=== PATIENT | male | born 1980 | race African-American/Black ===

== ENCOUNTER → 2016-12-21 | Outpatient (CLI) | payer BC, OTHER | LOC: HYPER 07:25 | DX: L89.224 Pressure ulcer of left hip, stage 4 (principal); G82.20 Paraplegia, unspecified; E44.0 Moderate protein-calorie malnutrition; F32.9 Major depressive disorder, single episode, unspecified; M86.68 Other chronic osteomyelitis, other site; Z72.89 Other problems related to lifestyle; Z86.14 Personal history of Methicillin resistant Staphylococcus aureus infection ==

== ENCOUNTER → 2017-01-11 | Outpatient (CLI) | payer BC, OTHER | LOC: HYPER 07:13 | DX: T81.89XA Other complications of procedures, not elsewhere classified, initial encounter (principal); L89.224 Pressure ulcer of left hip, stage 4; L89.892 Pressure ulcer of other site, stage 2; G82.20 Paraplegia, unspecified; M86.9 Osteomyelitis, unspecified; F32.9 Major depressive disorder, single episode, unspecified; Z72.89 Other problems related to lifestyle; Z86.14 Personal history of Methicillin resistant Staphylococcus aureus infection; Y83.8 Other surgical procedures as the cause of abnormal reaction of the patient, or of later complication, without mention of misadventure at the time of the procedure; Y92.89 Other specified places as the place of occurrence of the external cause ==

== ENCOUNTER → 2018-04-03 | Outpatient (CLI) | payer BC, OTHER | LOC: HYPER 06:55 | DX: L89.224 Pressure ulcer of left hip, stage 4 (principal); G82.20 Paraplegia, unspecified; M86.8X8 Other osteomyelitis, other site; F32.9 Major depressive disorder, single episode, unspecified; F41.9 Anxiety disorder, unspecified; Z99.2 Dependence on renal dialysis ==

== ENCOUNTER → 2019-10-09 | Outpatient (CLI) | payer BC, OTHER | LOC: HYPER 09:50 | PROVIDERS: ATTEND Emergency Medicine | DX: L89.224 Pressure ulcer of left hip, stage 4 (principal); M86.8X8 Other osteomyelitis, other site; G82.21 Paraplegia, complete; F32.9 Major depressive disorder, single episode, unspecified; F41.9 Anxiety disorder, unspecified; Z99.2 Dependence on renal dialysis; Z93.2 Ileostomy status ==

== ENCOUNTER → 2019-10-25 | Outpatient (CLI) | payer BC, OTHER | LOC: HYPER 07:18 | PROVIDERS: ATTEND Emergency Medicine | DX: L89.224 Pressure ulcer of left hip, stage 4 (principal); G82.21 Paraplegia, complete; M86.8X8 Other osteomyelitis, other site; Z99.2 Dependence on renal dialysis; F32.9 Major depressive disorder, single episode, unspecified; F41.9 Anxiety disorder, unspecified ==

== ENCOUNTER → 2019-11-08 | Outpatient (CLI) | payer BC, OTHER | LOC: HYPER 10:55 | PROVIDERS: ATTEND Emergency Medicine | DX: L89.224 Pressure ulcer of left hip, stage 4 (principal); G82.21 Paraplegia, complete; M86.8X8 Other osteomyelitis, other site; F32.9 Major depressive disorder, single episode, unspecified; F41.9 Anxiety disorder, unspecified; Z99.2 Dependence on renal dialysis ==

== ENCOUNTER → 2019-11-27 | Outpatient (CLI) | payer BC, OTHER | LOC: HYPER 10:54 | PROVIDERS: ATTEND Emergency Medicine Emergency Medical Services | DX: L89.224 Pressure ulcer of left hip, stage 4 (principal); G82.21 Paraplegia, complete; M86.9 Osteomyelitis, unspecified; F41.9 Anxiety disorder, unspecified; F32.9 Major depressive disorder, single episode, unspecified; Z86.14 Personal history of Methicillin resistant Staphylococcus aureus infection; Z79.01 Long term (current) use of anticoagulants ==

== ENCOUNTER → 2019-12-13 | Outpatient (CLI) | payer BC, OTHER | LOC: HYPER 10:51 | PROVIDERS: ATTEND Emergency Medicine | DX: L89.324 Pressure ulcer of left buttock, stage 4 (principal); L89.224 Pressure ulcer of left hip, stage 4; G82.21 Paraplegia, complete; M86.8X8 Other osteomyelitis, other site; F32.9 Major depressive disorder, single episode, unspecified; F41.9 Anxiety disorder, unspecified; Z99.2 Dependence on renal dialysis ==

== ENCOUNTER → 2020-03-25 | Outpatient (CLI) | payer BC, OTHER | LOC: HYPER 11:06 | PROVIDERS: ATTEND Emergency Medicine | DX: L89.224 Pressure ulcer of left hip, stage 4 (principal); G82.21 Paraplegia, complete; M86.8X8 Other osteomyelitis, other site; F32.9 Major depressive disorder, single episode, unspecified; F41.9 Anxiety disorder, unspecified; Z99.2 Dependence on renal dialysis ==

== ENCOUNTER → 2020-07-01 | Outpatient (CLI) | payer BC, OTHER | LOC: HYPER 11:14 | PROVIDERS: ATTEND Emergency Medicine | DX: L89.224 Pressure ulcer of left hip, stage 4 (principal); G82.21 Paraplegia, complete; M86.8X8 Other osteomyelitis, other site; F32.9 Major depressive disorder, single episode, unspecified; F41.9 Anxiety disorder, unspecified; Z99.2 Dependence on renal dialysis ==

== ENCOUNTER → 2020-10-07 | Outpatient (CLI) | payer BC, OTHER | LOC: HYPER 08:32 | PROVIDERS: ATTEND Emergency Medicine | DX: T81.33XA Disruption of traumatic injury wound repair, initial encounter (principal); K43.2 Incisional hernia without obstruction or gangrene; K43.9 Ventral hernia without obstruction or gangrene; M86.9 Osteomyelitis, unspecified; G82.21 Paraplegia, complete; K63.2 Fistula of intestine; F41.9 Anxiety disorder, unspecified; F32.9 Major depressive disorder, single episode, unspecified; Z86.14 Personal history of Methicillin resistant Staphylococcus aureus infection; Z93.2 Ileostomy status; Z90.5 Acquired absence of kidney; Z93.3 Colostomy status; Z99.2 Dependence on renal dialysis; Z79.01 Long term (current) use of anticoagulants; Z79.899 Other long term (current) drug therapy; Y83.8 Other surgical procedures as the cause of abnormal reaction of the patient, or of later complication, without mention of misadventure at the time of the procedure; Y92.238 Other place in hospital as the place of occurrence of the external cause ==

== ENCOUNTER → 2020-10-13 | Outpatient (CLI) | payer BC, OTHER | LOC: CAT 09:47 | PROVIDERS: ATTEND Emergency Medicine | DX: N28.1 Cyst of kidney, acquired (principal); D73.89 Other diseases of spleen; N28.81 Hypertrophy of kidney; M53.84 Other specified dorsopathies, thoracic region; Z98.890 Other specified postprocedural states; Z93.3 Colostomy status; Z90.49 Acquired absence of other specified parts of digestive tract; Z90.5 Acquired absence of kidney ==

== ENCOUNTER → 2020-10-27 | Outpatient (CLI) | payer BC, OTHER | LOC: HYPER 08:08 | PROVIDERS: ATTEND Emergency Medicine | DX: T81.31XD Disruption of external operation (surgical) wound, not elsewhere classified, subsequent encounter (principal); L98.492 Non-pressure chronic ulcer of skin of other sites with fat layer exposed; K43.2 Incisional hernia without obstruction or gangrene; K43.9 Ventral hernia without obstruction or gangrene; K63.2 Fistula of intestine; G82.21 Paraplegia, complete; F32.9 Major depressive disorder, single episode, unspecified; F41.9 Anxiety disorder, unspecified; Z86.14 Personal history of Methicillin resistant Staphylococcus aureus infection; Z99.2 Dependence on renal dialysis; M86.9 Osteomyelitis, unspecified; Z79.01 Long term (current) use of anticoagulants; Y83.8 Other surgical procedures as the cause of abnormal reaction of the patient, or of later complication, without mention of misadventure at the time of the procedure ==

== ENCOUNTER → 2020-11-18 | Outpatient (CLI) | payer BC, OTHER | LOC: HYPER 08:05 | PROVIDERS: ATTEND Emergency Medicine | DX: L98.492 Non-pressure chronic ulcer of skin of other sites with fat layer exposed (principal); K43.2 Incisional hernia without obstruction or gangrene; K43.9 Ventral hernia without obstruction or gangrene; M86.9 Osteomyelitis, unspecified; G82.21 Paraplegia, complete; F41.9 Anxiety disorder, unspecified; F32.9 Major depressive disorder, single episode, unspecified; K63.2 Fistula of intestine; Z86.14 Personal history of Methicillin resistant Staphylococcus aureus infection; Z99.2 Dependence on renal dialysis; Z79.01 Long term (current) use of anticoagulants ==

== ENCOUNTER → 2021-05-06 | Outpatient (CLI) | payer BC, OTHER | LOC: HYPER 10:12 | PROVIDERS: ATTEND Emergency Medicine | DX: K43.2 Incisional hernia without obstruction or gangrene (principal); K43.9 Ventral hernia without obstruction or gangrene; G82.21 Paraplegia, complete; M86.68 Other chronic osteomyelitis, other site; F32.9 Major depressive disorder, single episode, unspecified; F41.9 Anxiety disorder, unspecified; Z99.2 Dependence on renal dialysis; Z86.14 Personal history of Methicillin resistant Staphylococcus aureus infection ==